=== PATIENT | female | born 1945 | race Caucasian/White ===

== ENCOUNTER 2018-10-22 14:15 | Inpatient (IN) | payer MEDICARE, OTHER ==
[2018-10-22] MEDS ORDERED: Acetaminophen 325 MG Tab PO PRN (14:30)
[2018-10-22] MEDS ORDERED: Ondansetron 4 MG/2 ML SDV IV PRN (14:30)
[2018-10-22 15:13] VITALS: BP 110/54
[2018-10-22 15:16] LABS: BICARBONATE,ARTERIAL 32.7 mm/L (22.0-26.0); O2 DELIVERY DEVICE NASAL CANNULA; O2 SATURATION ARTERIAL 94 % (95-98); PCO2 ARTERIAL 47 mm/Hg0 (35-45); PO2 ARTERIAL 70 mm/Hg (80-100)
[2018-10-22] MEDS: Sodium Chloride 0.9% 1,000 ML IV SCH (15:54)
--- NOTE | 2018-10-23 09:39 | DISCH ---
HISTORY OF PRESENT ILLNESS: Aym is a 73-year-old female who was initially seen in the clinic this afternoon with concerns of generalized weakness that had been going on for about the last week, that is progressively getting worse. She did start having some increased shortness of breath today, in which she states she has difficulty even catching her breath at rest. She states that she started having a little bit of diarrhea this morning as well, was unable to take care of herself, did need her grandson to help her. 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 She states that she had a little bit of a cough; however, she denies any other upper respiratory symptoms. She states she has been nauseated and had a little bit of vomiting as well today. She has had no syncopal episodes. From the clinic, we did realize that she was unable to care for herself. We were going to admit her for observation at the hospital. She was transferred to the floor in a satisfactory condition at that time with workup to be completed. HOSPITAL COURSE: We did proceed with CBC that did show a white blood count of 10,500. Hemoglobin was stable at 12.1. Platelet count was 83,000. INR was 2.85 with a PT of 27.4. ABG did show pH of 7.45, pCO2 of 47, PO2 of 70, and HC03 of 32.7. O2 saturation 94% on 3 L oxygen per nasal cannula. Sodium was 129, creatinine 1.6, and magnesium 1.7. Interestingly, troponin was 0.099. CRP of 30.3. ProBNP of 4423. The patient does have a known history of COPD, history of congestive heart failure and history of atrial fibrillation, for which she is anticoagulated with Coumadin. Urinalysis did show a trace of protein with a trace of ketones. There was a small amount of leukocyte esterase with 5 to 10 wbc's. The patient denied any chest discomfort or any palpitations in her chest. EKG did show some ST elevation in the inferolateral leads. I did consult with Dr. Gar initially in regard to Amy's condition. Chest x-ray did show some atelectasis, questioning possible lower infiltrate. Due to concerns of weather with the likelihood of no travel advised within the state, Dr. Gar did not feel comfortable doing serial cardiac enzymes as, if they continue to elevate, we would be unable to transfer the patient at that point in time. I did discuss this into detail with Amy in regard to her condition. Amy did feel safe being transferred at this point in time to [facility], where she does do her cancer treatments. With long discussion on whether or not she would want any further workup done, she did agree that she would like those things to be completed if at all possible. She is a level-2 code status. I did proceed then to consult with Dr. Quezada, hospitalist at [facility], who did accept transfer. I did discuss into detail with Amy and her son, who is now present in the hospital, about her current condition. I did discuss into detail the likelihood of anything further happening while she is in [place]. I did discuss into detail possibly going on antibiotics secondary to, if it is, questionable pneumonia. She will likely have serial cardiac enzymes, for which they did verbalize understanding. I did discuss the transfer at this point in time, in regard to risks and benefits. The risks of transfer include motor vehicle accident, specially with the weather; worsening of condition and even cardiac . Benefits of transfer include specialized cardiac care, hospitalist, telemetry and cardiac intervention if needed. The risks of not transferring included no specialized cardiac care, interventions at a local facility. Again, risks continues with cardiac and worsening of condition. The benefits of not transferring included staying in familiar environment and close to home. Again, Amy and her son did verbalize understanding and were in agreement with transfer at this point in time. DISPOSITION: ALS transfer to [facility] via [facility], who did accept transfer as well. Again, accepting physician is Dr. Quezada. CHRISTOPHER/GILBERT /[id number] [place]KA
== END 2018-10-22 18:25 | DRG 194 ==
LOC: CC.MS 14:15 → UNDOADMIN 14:15 → CC.MS 14:30
PROVIDERS: ADMIT Physician Assistant Medical; ATTEND Family Medicine
DX: J18.9 Pneumonia, unspecified organism (principal); C34.90 Malignant neoplasm of unspecified part of unspecified bronchus or lung; C79.31 Secondary malignant neoplasm of brain; J44.0 Chronic obstructive pulmonary disease with (acute) lower respiratory infection; I50.9 Heart failure, unspecified; I48.91 Unspecified atrial fibrillation; F17.210 Nicotine dependence, cigarettes, uncomplicated; Z79.01 Long term (current) use of anticoagulants
CPT/HCPCS: 36415; 36600; 71046; 74019; 80053; 81001; 82550; 82803; 83735; 83880; 84484; 85025; 85610; 86140; 87086; 87088; 87186; 87804; 93005; 94761; J7030